=== PATIENT | female | born 1935 | race Caucasian/White ===

== ENCOUNTER 2017-10-26 18:49 | Emergency (ER) | payer OTHER, MEDICARE ==
[~2017-10-26] VITALS: Ht 162.6 cm; Wt 90.7 kg
--- NOTE | 2017-10-26 20:19 | ULTRASOUND REPORT ---
EXAMINATION: US TRIPLEX UPPER EXTREMITY, RIGHT CLINICAL INFORMATION: Right arm swelling, redness. COMPARISON: None TECHNIQUE: Color-flow triplex imaging with spectral analysis and compression Doppler was performed on the left upper extremity. FINDINGS: The right internal jugular, subclavian, and axillary veins are patent and free of thrombus. The imaged segment of the right brachiocephalic vein is patent. Spectral doppler waveforms are normal. The cephalic vein is noncompressible with no significant internal blood flow on color Doppler, consistent with occlusive thrombus. The brachial, basilic, radial, and ulnar veins are patient and compressible. IMPRESSION: Occlusive thrombus within the right cephalic vein, consistent with superficial thrombophlebitis. No evidence of deep vein thrombosis in the right upper extremity.
[2017-10-26 21:12] VITALS: BP 188/83
--- NOTE | 2017-10-26 21:17 | ED UPPER/LOWER EXTREMITY COMPL ---
History of Present Illness General Chief Complaint: General Adult Stated Complaint: R ARM REDNESS AND WARM TO TOUCH ?BITE Source: patient, family, old records Exam Limitations: no limitations Allergies Coded Allergies: diltiazem (From DILACOR XR) (PT UNSURE 10/26/17) simvastatin (From ZOCOR) (LIVER ISSUES 10/26/17) Reconcile Medications Apixaban (Eliquis) 2.5 MG TABLET 1 TAB PO BID BLOOD HEALTH (Reported) Carvedilol 12.5 MG TABLET 1 TAB PO BID HEART HEALTH (Reported) Fenofibrate Nanocrystallized (Fenofibrate) 48 MG TABLET 1 TAB PO DAILY HEART HEALTH (Reported) Spironolactone 50 MG TABLET 1 TAB PO DAILY HIGH BLOOD PRESSURE (Reported) Triage Note: PT TO ED FOR C/C OF REDNESS AND SWELLING TO R ELBOW AREA THAT APPEARED THIS MORNING. PT HAD IVC FILTER REMOVED FROM R SIDE OF NECK 1 WEEK AGO, BUT SYMPTOMS STARTED TODAY. DENIES SOB, CHEST PAIN, OR PAIN TO AREA. THIS MORNING, ELBOW WAS TENDER TO TOUCH BUT HAS SUBSIDED. PT IS SCHEDULED FOR ULTRASOUND TOMORROW. Triage Nurses Notes Reviewed? yes Onset: Abrupt Duration: day(s): (1), constant Timing: recent history Severity: mild Severity Numbers: 5 Pain/Injury Location: Right: Arm. 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 She states that last week she had an IVC filter removed through the right side of her neck that was placed for knee surgery that she had performed. The patient's history was significant for past DVT in the leg. She states that since today she is noticed her arm is been read warm and swollen. She denies any numbness or tingling. No chest pain or shortness of breath. She denies any trauma to the arm she states that she did have an IV in her right ac on the day the iv filter was removed PT TO ED FOR C/C OF REDNESS AND SWELLING TO R ELBOW AREA THAT APPEARED THIS MORNING. PT HAD IVC FILTER REMOVED FROM R SIDE OF NECK 1 WEEK AGO, BUT SYMPTOMS STARTED TODAY. DENIES SOB, CHEST PAIN, OR PAIN TO AREA. THIS MORNING, ELBOW WAS TENDER TO TOUCH BUT HAS SUBSIDED. PT IS SCHEDULED FOR ULTRASOUND TOMORROW. (Hermilo Up) Vital Signs & Intake/Output Vital Signs & Intake/Output Vital Signs Date Time Temp Pulse Resp B/P B/P Pulse O2 O2 Flow FiO2 Mean Ox Delivery Rate 10/26 2112 98.0 68 18 188/83 10/26 1903 97.2 68 15 154/77 97 Room Air Room Air ED Intake and Output 10/27 0000 10/26 1200 Intake Total 0 Output Total Balance 0 Intake, Oral 0 Patient 200 lb Weight Weight Reported by Patient Measurement Method (Judith CAMARILLO,Kamari Ramírez) Past History Travel History Traveled to [place] past 21 day No Medical History Any Pertinent Medical History? see below for history Neurological: NONE EENT: NONE Cardiovascular: hypertension, hyperlipidemia Respiratory: NONE Gastrointestinal: NONE Hepatic: NONE Renal: NONE Musculoskeletal: NONE Psychiatric: NONE Endocrine: NONE Blood Disorders: DVT, FACTOR 5 Cancer(s): NONE ALTERNATIVE DISPUTE RESOLUTION MEDIATOR/Reproductive: NONE Surgical History Surgical History: ivc filter Psychosocial History What is your primary language [place] Tobacco Use: Never used Family History Hx Contributory? No (Hermilo Up) Review of Systems Review of Systems Constitutional: Reports: see HPI. Comments Review of systems: See HPI, All other systems negative. Constitutional, no chills no fever, HEENT: no sore throat no congestion Cardiovascular: No chest pain Skin: see hpi Respiratory: No dyspnea no cough GI: No nausea no vomiting, Muscle skeletal: No joint pain, no back pain, no neck pain, Neurologic: , no headache Psych: No stress Heme/endocrine: No bruising Immunology: No lymphadenopathy (Hermilo Up) Physical Exam Physical Exam General Appearance: well developed/nourished, alert, awake Comments: Well-developed well-nourished patient in no apparent distress. HEENT: Atraumatic, extraocular motion intact Neck: Supple, FROM Back: FROM Cardiovascular: Regular rate and rhythms Respiratory: No respiratory distress. Patient speaking in full complete sentences. Breath sounds clear to auscultation bilaterally: NO W/R/R Shoulder: Atraumatic/Stable. FROM . Elbow: Atraumatic/stable. FROM. No laxity Upper arm/Forearm: Mild swelling over the right elbow mild erythema there is no streaking up the skin that is localized to the elbow and distal humerus, no crepitus Nontender. 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 Skin intact. FROM Pulses: Normal/equal radial pulses bilaterally. Brisk cap refill Lower Extremities: full range of motion Neuro: awake, alert, and oriented to person, place and time. There were no obvious focal neurologic abnormalities. Skin: Warm & dry;No appreciable rash on exposed skin Psych: Mood affect normal, normal memory normal judgment. (Heaven TEJEDA,Hermilo) Progress Differential Diagnosis: cellulitis, contusion, DVT, sprain, superficial thrombophlebitis Plan of Care: The ultrasound was ordered from triage. I discussed the results with Dr. Wong who evaluated the patient as well and agrees with plan. I discussed with the patient at length all of their results. I had an extensive conversation regarding need for close follow up with their vascular physician this week as well as return precautions. I answered all of their questions, they feel comfortable with the plan and follow-up care. Diagnostic Imaging: Viewed by Me: Ultrasound. Discussed w/RAD: Ultrasound. Radiology Impression: PATIENT: RENATO GOMEZ PRESENT AGE: 82 PATIENT ACCOUNT NO: [id number] : 36 LOCATION: [facility] ORDERING PHYSICIAN: Hermilo TEJEDA SERVICE DATE: 10/26/17 EXAM TYPE: US - US-UNILATERAL VENOUS DOPPLER EXAMINATION: US TRIPLEX UPPER EXTREMITY, RIGHT CLINICAL INFORMATION: Right arm swelling, redness. COMPARISON: None TECHNIQUE: Color-flow triplex imaging with spectral analysis and compression Doppler was performed on the left upper extremity. FINDINGS: The right internal jugular, subclavian, and axillary veins are patent and free of thrombus. The imaged segment of the right brachiocephalic vein is patent. Spectral doppler waveforms are normal. The cephalic vein is noncompressible with no significant internal blood flow on color Doppler, consistent with occlusive thrombus. The brachial, basilic, radial, and ulnar veins are patient and compressible. IMPRESSION: Occlusive thrombus within the right cephalic vein, consistent with superficial thrombophlebitis. No evidence of deep vein thrombosis in the right upper extremity. DICTATED BY: Filemon Gillette MD DATE/TIME DICTATED:10/26/172011 QUALITY TECHNICIAN FIBERGLASS:CHACHO DATE/TIME TRANSCRIBED:10/26/172011 CONFIDENTIAL, DO NOT COPY WITHOUT APPROPRIATE AUTHORIZATION. <Electronically signed in Other Vendor System> SIGNED BY: Filemon Gillette MD 10/26/172018 (Hermilo Up) Departure Departure Time of Disposition: 2132 Disposition: HOME OR SELF CARE Condition: Stable Clinical Impression Primary Impression: Superficial thrombophlebitis Referrals: Chintan Freeman MD (PCP/Family) Additional Instructions: Follow-up with your vascular doctor tomorrow. A copy of your ultrasound is in your paperwork. Heating pads Tylenol for pain keep arm elevated. Return to the emergency room anytime sooner with any concerns. Departure Forms: Customer Survey General Discharge Information (Hermilo Up) PA/COPPERSMITH HELPER Co-Sign Statement Statement: ED Attending supervision documentation- [X] I saw and evaluated the patient. I have also reviewed all the pertinent lab results and diagnostic results. I agree with the findings and the plan of care as documented in the PA's/COPPERSMITH HELPER's documentation. [] I have reviewed the ED Record and agree with the PA's/COPPERSMITH HELPER's documentation. [] Additions or exceptions (if any) to the PAs/COPPERSMITH HELPER's note and plan are summarized below: [] (Judith CAMARILLO,Kamari Ramírez)
[2017-10-26] MEDS ORDERED: CARVEDILOL12.5 M1 PO (21:46)
[2017-10-26] MEDS ORDERED: ELIQUIS2.5 M1 PO (21:46)
[2017-10-26] MEDS ORDERED: SPIRONOLACTONE50 M1 PO (21:46)
[2017-10-26] MEDS ORDERED: FENOFIBRATE48 M1 PO (21:46)
== END 2017-10-26 21:47 ==
LOC: ERH 18:49
DX: I80.8 Phlebitis and thrombophlebitis of other sites (principal)